=== PATIENT | male | born 2000 | race African-American/Black ===

== ENCOUNTER 2022-11-08 20:37 | Emergency (ER) | payer OTHER, BC ==
[2022-11-08] MEDS ORDERED: HYDROcodone/Acetaminophen 10/325 mg Tablet ONE (21:38)
== END 2022-11-08 22:10 | disposition home or self-care (01) ==
LOC: ERS 20:37 → EDBD 20:37 → ERS 22:10
DX: S93.601A Unspecified sprain of right foot, initial encounter (principal); V80.010A Animal-rider injured by fall from or being thrown from horse in noncollision accident, initial encounter; Y93.52 Activity, horseback riding

== ENCOUNTER 2023-05-09 07:47 | Emergency (ER) | payer BC ==
[2023-05-09] MEDS ORDERED: Dexamethasone 10 MG/ML VIAL ONE (07:58)
[2023-05-09] MEDS ORDERED: Ibuprofen 200 MG TAB ONE (07:59)
[2023-05-09 08:55] LABS: MONO NEGATIVE CONTROL ZONE White (Negative) (White); MONO POSITIVE CONTROL Pink Line (Positive) (PINK/RED); Mononucleosis NEGATIVE (NEGATIVE)
== END 2023-05-09 09:50 | disposition home or self-care (01) ==
LOC: ERS 07:47
DX: J02.9 Acute pharyngitis, unspecified (principal)
CPT/HCPCS: 36415; 86308; 87081; 87430; 99283; J1100

== ENCOUNTER 2023-05-12 17:51 | Emergency (ER) | payer BC | END 2023-05-12 21:47 | disposition left against medical advice (07) | LOC: ERS 17:51 | DX: Z53.21 Procedure and treatment not carried out due to patient leaving prior to being seen by health care provider (principal) ==